=== PATIENT | female | born 1990 | race Caucasian/White ===

== ENCOUNTER 2016-10-27 | Emergency (ER) | payer OTHER | END 2016-10-27 15:41 | disposition home or self-care (01) ==

== ENCOUNTER 2017-02-14 22:39 | Emergency (ER) | payer MEDICAID, OTHER ==
[2017-02-14] MEDS ORDERED: IPRATROPIUM/ALBUTEROL 3 ML NEB INH STA (23:25)
[2017-02-14] MEDS ORDERED: DEXAMETHASONE 10 MG/ML VIAL PO STA (23:25)
--- NOTE | 2017-02-14 23:28 | ED Physician Documentation ---
PD HPI DYSPNEA - Stated complaint Stated Complaint: SOA - Chief complaint Chief Complaint: Resp - History obtained from History obtained from: Patient, Family - History of Present Illness Timing - onset: How many days ago (5) Timing - onset during: Rest Timing - duration: Days (5) Timing - details: Gradual onset, Still present Inciting event(s): URI Improved by: Rest Worsened by: Exertion, Coughing Associated symptoms: Fever, Cough, Wheezing, Chest pain / discomfort, Other ( ear pain) Similar symptoms before: Diagnosis (asthma, sinus and ear infection) Recently seen: Clinic (Seen by rheumatology and had CXR without infiltrate) - Additional information Additional information: 26 y/o female with a history of rheumatic arthritis and asthma has developed a URI with coughing for the past 9 days. She has had progressive shortness of breath for the past 5 days and worsening of her symptoms of anterior chest wall pain. Review of Systems Constitutional: reports: Fever, Chills, Myalgias, Fatigue Eyes: denies: Decreased vision Ears: reports: Ear pain Nose: reports: Rhinorrhea / runny nose, Congestion Throat: denies: Sore throat Cardiac: reports: Chest pain / pressure. 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 - Present Medications Home Medications: Ambulatory Orders Medication Instructions Recorded Confirmed HYDROmorphone [Dilaudid] 2 mg PO Q4H 07/27/13 02/14/17 Atenolol 25 mg ORAL BID 10/27/16 02/14/17 Desog-E.estradiol/E.estradiol 1 tab ORAL DAILY 10/27/16 02/14/17 [Kariva 28 Day Tablet] Dexlansoprazole [Dexilant] 30 mg ORAL DAILY 10/27/16 02/14/17 Lisdexamfetamine Dimesylate 50 mg ORAL DAILY 10/27/16 02/14/17 [Vyvanse] methylPREDNISolone [Medrol] 4 mg ORAL BID 10/27/16 02/14/17 oxyCODONE [Roxicodone] 10 mg PO DAILY 02/14/17 02/14/17 Levofloxacin [Levaquin] 500 mg PO DAILY #10 tablet 02/15/17 - Allergies Allergies/Adverse Reactions: Allergies Allergy/AdvReac Type Severity Reaction Status Date / Time Penicillins Allergy Mild Respiratory Verified 02/14/17 22:44 Sulfa (Sulfonamide Allergy Mild Hives Verified 02/14/17 22:44 Antibiotics) Cephalosporins Allergy Hives Verified 02/14/17 22:44 azithromycin AdvReac Severe Emesis Verified 02/14/17 22:44 [From Zithromax Z-Baljeet] - Social History Does the pt smoke?: No Smoking Status: Never smoker Does the pt drink ETOH?: No Does the pt have substance abuse?: No - Immunizations Immunizations are current?: Yes - POLST Patient has POLST: No PD ED PE NORMAL - Vitals Vital signs reviewed: Yes (tachy and hypertensive ) - General General: Alert and oriented X 3, Well developed/nourished, Other (mild tachypnea at rest) - HEENT HEENT: Atraumatic, PERRL, EOMI, Other (inflamation bilaterally worse on the right. ) - Neck Neck: Supple, no meningeal sign, No bony TTP - Cardiac Cardiac: No murmur, Other (tachy ) - Respiratory Respiratory: No respiratory distress, Other (focal wheezes to the right lower and middle lung field ) - Abdomen Abdomen: Soft, Non tender - Back Back: No CVA TTP, No spinal TTP - Derm Derm: Normal color, Warm and dry, No rash - Extremities Extremities: No deformity, No edema - Neuro Neuro: No motor deficit, No sensory deficit - Psych Psych: Normal mood, Normal affect Results - Vitals Vitals: Vital Signs - 24 hr 02/14/17 02/14/17 02/15/17 22:41 23:50 00:37 Temperature 36.8 C 36.2 C L Heart Rate 111 H 83 94 Respiratory 22 18 16 Rate Blood Pressure 143/93 H 136/74 H O2 Saturation 100 98 Oxygen O2 Source Room air - Rads (name of study) 2 view chest Radiology: Prelim report reviewed (Impression: Negative two-view chest radiography.), EMP read indepedently, See rad report PD MEDICAL DECISION MAKING - ED course Complexity details: reviewed old records, reviewed results, re-evaluated patient , considered differential, d/w patient, d/w family ED course: 26 y/o female with a history of rheumatoid arthritis has developed cough, congestion and wheezing and has OM on exam and no infiltrate on CXR. She is given decadron 10mg PO, a duoneb treatment and we will start her on some antibiotic. Departure - Departure Disposition: 01 Home, Self Care Clinical Impression: Otitis media Qualifiers: Otitis media type: suppurative Laterality: bilateral Chronicity: acute Recurrence: not specified as recurrent Spontaneous tympanic membrane rupture: without spontaneous rupture Qualified Code(s): H66.003 - Acute suppurative otitis media without spontaneous rupture of ear drum, bilateral Condition: Stable Instructions: ED Otitis Media Acute Adult, ED Reactive Airway Disease Follow-Up: CARLOTTA MILLAN MD [Primary Care Provider] - Prescriptions: Levofloxacin [Levaquin] 500 mg PO DAILY #10 tablet
[2017-02-14] MEDS ORDERED: DEXAMETHASONE 10 MG/ML VIAL ONE (23:39)
[2017-02-14] MEDS ORDERED: IPRATROPIUM/ALBUTEROL 3 ML NEB INH ONE (23:44)
--- NOTE | 2017-02-15 00:24 | XRAY Preliminary Report ---
Exam: XR Chest 2 View PA/LAT IMPRESSION: Negative 2-view chest radiography. [facility] SITE ID: [id number]
--- NOTE | 2017-02-15 00:26 | XRAY Report ---
EXAM: CHEST RADIOGRAPHY EXAM DATE: 02/15/2017 12:12 AM. CLINICAL HISTORY: Cough right sided focal wheezes. COMPARISON: None. TECHNIQUE: 2 views. FINDINGS: Lungs/Pleura: No focal opacities evident. No pleural effusion. No pneumothorax. Normal volumes. Mediastinum: Heart and mediastinal contours are unremarkable. Other: Bilateral chest wall clips. IMPRESSION: Negative 2-view chest radiography. [facility] Referring Provider Line: [phone] SITE ID: [id number]
[2017-02-15] MEDS ORDERED: levoFLOXacin 250 MG TABLET PO STA (01:24)
[2017-02-15] MEDS ORDERED: levoFLOXacin 250 MG TABLET ONE (01:29)
[2017-02-15 01:45] VITALS: BP 126/66
== END 2017-02-15 01:45 | disposition home or self-care (01) ==
LOC: ED 22:39
DX: H66.003 Acute suppurative otitis media without spontaneous rupture of ear drum, bilateral (principal); J45.909 Unspecified asthma, uncomplicated; R05 Cough; M06.9 Rheumatoid arthritis, unspecified
CPT/HCPCS: 71020; 94640; 99283; A9270; J7620

== ENCOUNTER 2017-03-13 18:40 | Emergency (ER) | payer MEDICAID ==
[2017-03-13] MEDS ORDERED: SODIUM CHLORIDE 0.9% 1,000 ML IV ONE ×2 (20:35→20:43)
[2017-03-13] MEDS ORDERED: HYDROmorphone 1 MG/ML SYRINGE IM STA (20:35)
[2017-03-13] MEDS ORDERED: KETOROLAC 60 MG/2 ML VIAL IVP STA (20:38)
[2017-03-13] MEDS ORDERED: KETOROLAC 30 MG/ML VIAL ONE (20:43)
[2017-03-13] MEDS ORDERED: HYDROmorphone 1 MG/ML SYRINGE IVP STA (20:43)
[2017-03-13] MEDS ORDERED: HYDROmorphone 1 MG/ML SYRINGE ONE (20:43)
[2017-03-13 20:46] LABS: PH,URINE 5.5 PH (5.0-7.5)
[2017-03-13 20:52] LABS: BASOPHILS % (AUTO) 0.4 %; EOSINOPHILS % (AUTO) 0.3 %; LYMPHOCYTES % (AUTO) 8.9 %; MEAN CORPUSCULAR HEMOGLOBIN 29.6 pg (27.0-31.0); MEAN CORPUSCULAR HGB CONC 33.4 g/dL (32.0-36.0); MEAN CORPUSCULAR VOLUME 88.5 fL (81.0-99.0); MEAN PLATELET VOLUME 8.2 fL (7.9-10.8); MONOCYTES # (AUTO) 0.7 10^3/uL (0.0-1.0); MONOCYTES % (AUTO) 6.3 %; NEUTROPHILS # (AUTO) 9.4 10^3/uL (1.5-6.6); NEUTROPHILS % (AUTO) 84.1 %; RED BLOOD COUNT 4.75 10^6/uL (4.20-5.40); UNCORRECTED WHITE BLOOD COUNT 11.2 x10^3/uL; WHITE BLOOD COUNT 11.2 x10^3/uL (4.8-10.8)
[2017-03-13 20:54] LABS: BILIRUBIN,URINE NEGATIVE (NEGATIVE); UA w/ MICROSCOPIC CHARGE YES
[2017-03-13 20:55] LABS: UR CULTURE IF IND NOT INDICATED; WBC,URINE 0-3 /HPF (0-5)
[2017-03-13 21:04] LABS: ALBUMIN/GLOBULIN RATIO 1.6 (1.0-2.2); BILIRUBIN,TOTAL 0.5 mg/dL (0.2-1.0); CALCIUM 9.3 mg/dL (8.5-10.3); CREATININE 0.8 mg/dL (0.4-1.0); TOTAL PROTEIN 6.7 g/dL (6.7-8.2)
[2017-03-13] MEDS ORDERED: ONDANSETRON 4 MG/2 ML VIAL ONE (21:04)
[2017-03-13] MEDS ORDERED: ONDANSETRON 4 MG/2 ML VIAL IVP STA (21:07)
--- NOTE | 2017-03-13 21:30 | XRAY Preliminary Report ---
Exam: XR Chest 2 View PA/LAT IMPRESSION: Normal 2-view chest radiography. [facility] SITE ID: [id number]
--- NOTE | 2017-03-13 21:41 | XRAY Report ---
EXAM: CHEST RADIOGRAPHY EXAM DATE: 03/13/2017 09:16 PM. CLINICAL HISTORY: Right-sided chest pain/immunocompromised. COMPARISON: 02/15/2017. TECHNIQUE: 2 views. FINDINGS: Lungs/Pleura: No focal opacities evident. No pleural effusion. No pneumothorax. Normal volumes. Mediastinum: Heart and mediastinal contours are unremarkable. Other: Remote bilateral breast surgery. IMPRESSION: Normal 2-view chest radiography. [facility] Referring Provider Line: [phone] SITE ID: [id number]
[2017-03-13 22:57] VITALS: BP 120/68
--- NOTE | 2017-03-13 23:23 | ED Physician Documentation ---
PD HPI CHEST PAIN - Stated complaint Stated Complaint: RT SIDE SHARP PAIN - Chief complaint Chief Complaint: Resp - History obtained from History obtained from: Patient, Family - Additional information Additional information: This patient is a 26-year-old female with a history of rheumatoid arthritis, periodic fever, and thoracic outlet syndrome status post surgical repair bilaterally in the past. Her symptoms started in the beginning of the month with bilateral otalgia she subsequently was treated with Levaquin and erythromycin and on the third of the month she is diagnosed with pleurisy by her physician. She complains of pain on the right side of her chest that comes and goes is mainly with deep breathing. She has not had any fever cough there is no shortness of breath leg pain or leg swelling. Most of the pain is below the right shoulder blade.This patient is on immune modulating medication as well as methylprednisolone. She also takes Dexilant to prevent steroid-induced gastritis. 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 She does take OxyContin 15 mg nightly. Review of systems: For pertinent positive and negatives in the review of systems please see history of present illness. Otherwise all other systems have been reviewed and are negative. Dragon disclaimer: Parts of this medical record were created using voice recognition technology. Because of the inherent limitations of this system occasional same sounding word substitutions do occur and persist despite proofreading. Please read the document for context. Review of Systems Ten Systems: 10 systems reviewed and negative Constitutional: denies: Fever, Chills, Myalgias Eyes: denies: Loss of vision, Decreased vision, Photophobia Nose: denies: Rhinorrhea / runny nose, Congestion Throat: denies: Dental pain / toothache, Sore throat Cardiac: reports: Chest pain / pressure. denies: Pedal edema, Calf pain Respiratory: denies: Dyspnea, Cough, Hemoptysis, Wheezing GI: denies: Abdominal Pain, Abdominal Swelling, Nausea, Vomiting, Constipation, Diarrhea, Hematemesis : reports: Hematuria. 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 - Present Medications Home Medications: Ambulatory Orders Medication Instructions Recorded Confirmed HYDROmorphone [Dilaudid] 2 mg PO Q4H 07/27/13 03/13/17 Atenolol 25 mg ORAL BID 10/27/16 03/13/17 Desog-E.estradiol/E.estradiol 1 tab ORAL DAILY 10/27/16 03/13/17 [Kariva 28 Day Tablet] Dexlansoprazole [Dexilant] 30 mg ORAL DAILY 10/27/16 03/13/17 Lisdexamfetamine Dimesylate 50 mg ORAL DAILY 10/27/16 03/13/17 [Vyvanse] methylPREDNISolone [Medrol] 4 mg ORAL BID 10/27/16 03/13/17 oxyCODONE [Roxicodone] 10 mg PO DAILY 02/14/17 03/13/17 - Allergies Allergies/Adverse Reactions: Allergies Allergy/AdvReac Type Severity Reaction Status Date / Time Penicillins Allergy Mild Respiratory Verified 03/13/17 20:32 Sulfa (Sulfonamide Allergy Mild Hives Verified 03/13/17 20:32 Antibiotics) Cephalosporins Allergy Hives Verified 03/13/17 20:32 azithromycin AdvReac Severe Emesis Verified 03/13/17 20:32 [From Zithromax Z-Baljeet] - Social History Does the pt smoke?: No Smoking Status: Never smoker Does the pt drink ETOH?: No Does the pt have substance abuse?: No - Immunizations Immunizations are current?: Yes - POLST Patient has POLST: No PD ED PE NORMAL - Vitals Vital signs reviewed: Yes - General General: Alert and oriented X 3, No acute distress, Well developed/nourished - HEENT HEENT: PERRL, EOMI, Ears normal - Neck Neck: No bony TTP, No adenopathy, No JVD, No bruit - Cardiac Cardiac: RRR, No murmur, No gallop, No rub - Respiratory Respiratory: No respiratory distress, Clear bilaterally - Abdomen Abdomen: Normal bowel sounds, Soft, Non tender, Non distended - Back Back: No CVA TTP, No spinal TTP - Derm Derm: Normal color, Warm and dry - Extremities Extremities: No deformity, No tenderness to palpate, Normal ROM s pain - Neuro Neuro: Alert and oriented X 3 - Psych Psych: Normal mood, Normal affect Results - Vitals Vitals: Vital Signs - 24 hr 03/13/17 03/13/17 03/13/17 18:45 21:00 21:56 Temperature 35.9 C L Heart Rate 93 71 70 Respiratory 14 16 15 Rate Blood Pressure 117/80 113/64 115/66 O2 Saturation 100 96 99 03/13/17 22:55 Temperature Heart Rate 75 Respiratory 16 Rate Blood Pressure 120/68 O2 Saturation 98 Oxygen O2 Source Room air - Labs Labs: Laboratory Tests 03/13/17 03/13/17 03/13/17 19:20 20:45 20:45 WBC 11.2 H RBC 4.75 Hgb 14.0 Hct 42.0 MCV 88.5 MCH 29.6 MCHC 33.4 RDW 13.0 Plt Count 318 MPV 8.2 Neut # 9.4 H Lymph # 1.0 L [place] # 0.7 Eos # 0.0 Baso # 0.0 Absolute Nucleated RBC 0.00 Nucleated RBCs 0.0 Sodium 141 Potassium 4.0 Chloride 109 Carbon Dioxide 24 Anion Gap 8.0 BUN 9 Creatinine 0.8 Estimated GFR (MDRD) 85 L Glucose 192 H Calcium 9.3 Total Bilirubin 0.5 AST 16 ALT 24 Alkaline Phosphatase 46 Total Protein 6.7 Albumin 4.1 Globulin 2.6 Albumin/Globulin Ratio 1.6 Lipase 36 Urine Color YELLOW Urine Clarity CLOUDY Urine pH 5.5 Ur Specific [place] 1.025 Urine Protein NEGATIVE Urine Glucose (UA) NEGATIVE Urine Ketones NEGATIVE Urine Occult Blood NEGATIVE Urine Nitrite NEGATIVE Urine Bilirubin NEGATIVE Urine Urobilinogen 0.2 (NORMAL) Ur Leukocyte Esterase NEGATIVE Urine RBC None Seen Urine WBC 0-3 Ur Squamous Epith Cells NONE SEEN Amorphous Sediment Marked Urine Bacteria None Seen Ur Microscopic Review INDICATED Urine Culture Comments NOT INDICATED PD MEDICAL DECISION MAKING - ED course Complexity details: reviewed old records, reviewed results, re-evaluated patient ED course: Patient is a 26-year-old female with history of rheumatoid arthritis and periodic fever on immunosuppressants and steroids. She has pleurodynia of the right side is had it for several weeks. She only experiences pain when she takes a deep breath. She was diagnosed with pleurisy clinically by her physician however it worsened and she decided to come in for evaluation. She does not have any PE risk factors or signs or symptoms on examination. She is breathing comfortably not dyspneic has normal oxygen dissymmetry and normal pulse. There is no evidence of venous thromboembolism on physical exam of her extremities. A chest x-ray shows no acute intrathoracic diseaseBlood work on this patient shows white count of 11 however the electrolytes BUN and creatinine and urinalysis are all normal she is given 1 L of hydration and pain medication and IV Toradol. At this point in time she looks and feels better. I do not see any evidence of infection. She is low risk clinically for venous thromboembolism. I suspect more likely than not that her doctors probably correct in her assumption of pleurisy given the pleurodynia following a URI Disposition: To home Clinical impression: 1. Right-sided pleurodynia-suspect pleurisy Departure - Departure Disposition: 01 Home, Self Care Clinical Impression: Chest pain Qualifiers: Chest pain type: pleurodynia Qualified Code(s): R07.81 - Pleurodynia Condition: Good Instructions: ED Chest Pain Pleurisy Follow-Up: CARLOTTA MLILAN MD [Primary Care Provider] - Discharge Date/Time: 03/13/17 22:57
== END 2017-03-13 22:57 | disposition home or self-care (01) ==
LOC: ED 18:40
DX: R07.9 Chest pain, unspecified (principal); R31.9 Hematuria, unspecified; M06.9 Rheumatoid arthritis, unspecified; J45.909 Unspecified asthma, uncomplicated
CPT/HCPCS: 36415; 71020; 80053; 81001; 83690; 85025; 96361; 96374; 96375; 99284; J1170; 81003; 87086